=== PATIENT | male | born 1955 | race Caucasian/White ===

== ENCOUNTER 2017-01-14 13:48 | Inpatient (IN) | payer BC, OTHER ==
[~2017-01-14] VITALS: Ht 188 cm; Wt 74.8 kg
--- NOTE | 2017-01-14 16:00 | NUR ---
Intake Assessment; Patient is a 61 year old male, AOX4, presented to [facility] to detoxify from ETOH. Patient arrived at intake office at approximately 1530. He is the primary source of information. Patient is admitted under the care of Dr. Neville to room 312. Patient was educated regarding the importance of providing urine for urine drug screen. Patient appears to be anxious, agitated, flushed face, tremors to touch. Patient denies any allergies or seizure history. Patient's admitting Vital signs are as follows; BP 126/83, HR 98, Temperature 98.4, Respirations 18 and Spo2 of 95%, patient denies pain at this time. Patient remained cooperative with assessment. Educated patient regarding unit protocol and policies, verbalized understanding. Will continue with further assessment when patient is up on the unit.
[2017-01-14] MEDS ORDERED: LOPERAMIDE HCL 2 MG CAPSULE PO PRN ×2 (16:30)
[2017-01-14] MEDS ORDERED: DICYCLOMINE HCL 20 MG TABLET PO PRN (16:30)
[2017-01-14] MEDS ORDERED: ONDANSETRON 4 MG/2 ML VIAL IM PRN (16:30)
[2017-01-14] MEDS ORDERED: LORAZEPAM 1 MG TABLET PO PRN (16:30)
[2017-01-14] MEDS ORDERED: MAGNESIUM HYDROXIDE 30 ML LIQUID UDC PO PRN (16:30)
[2017-01-14] MEDS ORDERED: ONDANSETRON ODT 4 MG TAB.RAPDIS SL PRN (16:30)
[2017-01-14] MEDS ORDERED: THIAMINE HCL 200 MG/2 ML VIAL IM ONE (16:30)
[2017-01-14] MEDS ORDERED: ACETAMINOPHEN 325 MG TABLET PO PRN (16:30)
[2017-01-14] MEDS ORDERED: MAG HYDROX/AL HYDROX/SIMETH 30 ML LIQUID UDC PO PRN (16:30)
[2017-01-14] MEDS ORDERED: diphenhydrAMINE 50 MG CAPSULE PO PRN (16:30)
[2017-01-14] MEDS ORDERED: MIRALAX 17 GM POWD.PACK PO PRN (16:30)
[2017-01-14] MEDS ORDERED: LORAZEPAM 2 MG/1 ML VIAL IM PRN (16:30)
[2017-01-14 17:20] LABS: BASOPHILS % (AUTO) 0.9 % (0.0-2.0); EOSINOPHILS # (AUTO) 0.1 K/uL (0.0-0.7); EOSINOPHILS % (AUTO) 2.6 % (0.0-7.0); HEMATOCRIT 46.2 % (40-50); HEMOGLOBIN 15.4 G/DL (14.0-18.0); LYMPHOCYTES # (AUTO) 1.3 K/UL (0.8-4.8); LYMPHOCYTES % (AUTO) 25.3 % (20.5-51.5); MEAN CORPUSCULAR HEMOGLOBIN 33.6 UUG (27.0-31.0); MEAN CORPUSCULAR HGB CONC 33 g/dL (32.0-37.0); MEAN CORPUSCULAR VOLUME 100.7 FL (82.0-92.0); MONOCYTES # (AUTO) 0.6 K/UL (0.1-1.30); MONOCYTES % (AUTO) 11.1 % (0.0-11.0); NEUTROPHILS % (AUTO) 60.1 % (38.5-71.5); PLATELET COUNT (AUTO) 112 K/UL (150-450); RED BLOOD CELL COUNT(AUTO) 4.59 MIL/UL (4.7-6.1)
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
[2017-01-14 17:38] LABS: BILIRUBIN,TOTAL 0.4 mg/dL (0.2-1.0); MAGNESIUM 1.9 mg/dL (1.8-2.4); POTASSIUM 3.3 mmol/L (3.5-5.1)
--- NOTE | 2017-01-14 18:35 | NUR ---
MD communication; Dr. Neville reviewed patient's LAB results. MD ordered K-dur 60 mEq x1 and repeat chem, LFT and lipase in AM. Orders entered d/t does not have access to Percentil at this time. also notified regarding patient's psoriasis flare up, per MD he will evaluate patient's skin tomorrow during rounds.
--- NOTE | 2017-01-14 18:40 | NUR ---
End of shift note; Patient is AOX4. Patient was educated regarding the importance of providing urine fro urine drug screen, patient verbalized understanding. Per MD order, patient to start 5 day Ativan taper tomorrow morning. All safety measures secured. Met all needs.
--- NOTE | 2017-01-14 19:50 | NUR ---
START OF SHIFT Received report from day shift nurse. Pt is lying in bed resting. He is a 61 yo male admitted to [facility] today for ETOH dependence. He is A&O x4 and ambulatory. NKA, full code status, on a regular diet. He has a PMH of psoriasis, anxiety, rib and wrist fracture 3 years ago. On admission he reported using ETOH 750mL per day. Prior to admission today he was in the ED in [place] for ETOH intoxication. PRN's available for the management of withdrawal symptoms. 5 Day Ativan taper to start tomorrow. No urine provided for drug screen yet. Encouraged fluids. He is observed with tremors and moist skin. Fall and seizure precautions in place. Bed is down with call light in reach.
[2017-01-14 20:00] VITALS: BP 114/73
[2017-01-14] MEDS ORDERED: POTASSIUM CHLORIDE 20 MEQ TAB.PRT.SR PO ONE ×3 (20:30→21:30)
[2017-01-14] MEDS: LORAZEPAM 1 MG TABLET PO PRN ×2 (21:10→23:15)
--- NOTE | 2017-01-14 21:10 | NUR ---
PRN Ativan and Clonidine administration Pt is noted with gross tremors, flushing, and sweating. He reports feeling anxious and unable to relax. CIWA score 8. PRN Clonidine and Ativan administered.
[2017-01-14] MEDS: CLONIDINE HCL 0.1 MG TABLET PO PRN (21:11)
[2017-01-14 21:34] LABS: *AMPHETAMINE, URINE NEGATIVE (NEGATIVE); *BARBITURATE, URINE NEGATIVE (NEGATIVE); *CANNABINOID, URINE NEGATIVE (NEGATIVE); *COCCAINE, URINE NEGATIVE (NEGATIVE); *OPIATE, URINE NEGATIVE (NEGATIVE); *PHENCYCLIDINE SCREEN,URINE NEGATIVE (NEGATIVE)
--- NOTE | 2017-01-14 22:10 | NUR ---
PRN Ativan and Clonidine reassessment PRN Ativan and Clonidine effective. Pt now has mild fine tremors. He reports feeling relaxed and less anxious. CIWA 4.
[2017-01-14 23:05] VITALS: BP 139/77
--- NOTE | 2017-01-14 23:16 | NUR ---
PRN Ativan and Benadryl Pt is noted again with gross tremors and diaphoresis. He reports feeling anxious, and unable to relax and fall asleep. CIWA 7. PRN Ativan and Benadryl administered.
[2017-01-15 00:05] VITALS: BP 155/93
--- NOTE | 2017-01-15 00:16 | NUR ---
PRN Ativan and Benadryl reassessment PRN Ativan and Benadryl somewhat effective. Tremors reduced. B/P slightly increased. He is lying still in bed resting with eyes closed. Respirations even and unlabored. Safety measures in place.
[2017-01-15 04:20] VITALS: BP 149/103
[2017-01-15] MEDS: CLONIDINE HCL 0.1 MG TABLET PO PRN (04:42)
[2017-01-15] MEDS: HYDROXYZINE PAMOATE 25 MG CAPSULE PO PRN (04:43)
--- NOTE | 2017-01-15 04:43 | NUR ---
PRN Clonidine and Vistaril Pt's B/P is 149/103. He has moist skin and gross tremors. CIWA 6. PRN Clonidine and Vistaril administered.
--- NOTE | 2017-01-15 05:43 | NUR ---
PRN Clonidine and Vistaril reassessment PRN Clonidine and Vistaril effective. Pt is lying still in bed resting with eyes closed. Respirations even and unlabored. Safety measures in place.
--- NOTE | 2017-01-15 07:00 | NUR ---
Start of Shift Endorsement received from nightshift nurse. Pt is a 61 y/o male admitted for alcohol. Pt has been placed on a 5 day Ativan taper. Pt is tolerating the taper and moderately withdrawing AEB CIWA 6 at 0500. Pt has received PRN Ativan x2, Vistaril x1, Clonidine x2 and Benadryl. Pt reports sleeping 9 hours. VS WNL. Full Code. PT is alert and oriented x4. Pt is in STABLE condition at this time. Remains compliant with medication and diet regimen. All needs have been met, All safety measures in place per hospital policy. Bed in lowest position, side rails up x2, call-light within reach. Will continue to monitor
--- NOTE | 2017-01-15 07:22 | NUR ---
START OF SHIFT Received report from day shift nurse. Pt is lying in bed resting. He is a 61 yo male admitted to [facility] on 01/14 for ETOH dependence. He is A&O x4. NKA, full code status, on a regular diet. He has a PMH of psoriasis, anxiety, rib and wrist fracture 3 years ago. On admission he reported using ETOH 750mL per day. PRNs available for the management of withdrawal symptoms. 5 Day Ativan taper to start today. UDS resulted. Pt was noted with gross tremors. PRN Ativan x2, PRN Clonidine X2, PRN Benadryl, and PRN Vistaril administered. Last CIWA was 6 prior to neurological surgeon PRNs. He slept after. He drank 1500mL and slept for 9 hours. Fall and seizure precautions in place. Bed is down with call light in reach. Addendum: 01/15/17 at 193 by AMY RANDOLPH RN Correction: Report provided to day shift nurse. Addendum: 01/15/17 at 2056 by AMY RANDOLPH RN Correction: This is END OF SHIFT note
[2017-01-15 08:00] VITALS: BP 139/97
[2017-01-15 08:05] LABS: BILIRUBIN,TOTAL 1.1 mg/dL (0.2-1.0); CREATININE 0.8 mg/dL (0.6-1.3); POTASSIUM 3.8 mmol/L (3.5-5.1); TOTAL PROTEIN, SERUM 6.4 g/dL (6.4-8.2)
[2017-01-15] MEDS: LORAZEPAM 1 MG TABLET PO SCH ×4 (08:19→22:01)
[2017-01-15] MEDS: MULTIVITAMINS,THERAPEUTIC TABLET PO SCH (08:19)
[2017-01-15] MEDS: DOCUSATE SODIUM 250 MG CAPSULE PO SCH (08:19)
[2017-01-15] MEDS: FOLIC ACID 1 MG TABLET PO SCH (08:19)
[2017-01-15] MEDS: THIAMINE HCL 100 MG TABLET PO SCH (08:20)
[2017-01-15] MEDS ORDERED: 5 DAY TAPER OF LORAZEPAM -SERENITY PROTOCOL PO PRN (09:00)
[2017-01-15] MEDS ORDERED: TUBERCULIN,PURIF.PROT.DERIV. 5 TU/0.1 ML TEST ID ONE (09:00)
[2017-01-15 12:00] VITALS: BP 129/88
--- NOTE | 2017-01-15 14:07 | NUR ---
Therapist prompted client to attend daily group sessions, at 11am and 3:30pm. Client stated that he would think about attending.
[2017-01-15 16:00] VITALS: BP 132/95
--- NOTE | 2017-01-15 18:30 | NUR ---
Start of Shift Endorsement given to nightshift nurse. Pt is a 61 y/o male admitted for alcohol. Pt has been placed on a 5 day Ativan taper. Pt is tolerating the taper and moderately withdrawing AEB CIWA 7 at 1600. Pt has not received any PRN medications. Pt is tolerating the Ativan taper. Pt did not participate in groups, reporting he proffering sleeping in his room. Educated pt on s/e of withdrawals and medications s/e. Encouraged pt to drink more fluids. Intake: 2000ml, Void x3, BM x1 VS WNL. Full Code. PT is alert and oriented x4. Pt is in STABLE condition at this time. Remains compliant with medication and diet regimen. All needs have been met, All safety measures in place per hospital policy. Bed in lowest position, side rails up x2, call-light within reach. Will continue to monitor
--- NOTE | 2017-01-15 19:45 | NUR ---
START OF SHIFT Received report from day shift nurse. Pt is lying in bed resting. He is a 61 yo male admitted to [facility] on 01/14 for ETOH dependence. He is A&O x4 and ambulatory. NKA, full code status, on a regular diet. He has a PMH of psoriasis, anxiety, rib and wrist fracture 3 years ago. On admission he reported using ETOH 750mL per day. 5 Day Ativan taper started today. He has fine tremors and moist skin. Ativan taper is working well to manage gross tremors. Fall and seizure precautions in place. Bed is down with call light in reach.
[2017-01-15 20:00] VITALS: BP 118/87
[2017-01-16] VITALS: BP 138/96
[2017-01-16 04:00] VITALS: BP 131/87
[2017-01-16 07:11] LABS: HEPATITIS B SURFACE AG Negative (Negative)
--- NOTE | 2017-01-16 07:18 | NUR ---
END OF SHIFT Report provided to day shift nurse. Pt is lying in bed resting. He is a 61 yo male admitted to [facility] on 01/14 for ETOH dependence. He is A&O x4 and ambulatory. NKA, full code status, on a regular diet. He has a PMH of psoriasis, anxiety, rib and wrist fracture 3 years ago. On admission he reported using ETOH 750mL per day. 5 Day Ativan taper started yesterday. He has fine tremors and occasional mild gross tremors. Pt spent most of the shift in bed. No PRN medications administered. Last CIWA was 4. He drank 651mL and slept for 11 hours. Fall and seizure precautions in place. Bed is down with call light in reach.
--- NOTE | 2017-01-16 07:30 | NUR ---
START OF SHIFT Pt 61 y/o male admitted for etoh withdrawal. Pt received in room with eyes closed resting, but easily arousable to name. Pt alert and oriented to name, place, and time. Perrla. Skin warm and slightly moist to touch. Respirations even and unlabored. It was reported that pt slept for 11 hours last night. Bed on lowest position with side rails x2 up for safety. Call light within reach. No distress noted at this time.
[2017-01-16 08:00] VITALS: BP 153/104
[2017-01-16] MEDS: FOLIC ACID 1 MG TABLET PO SCH (08:53)
[2017-01-16] MEDS: CLONIDINE HCL 0.1 MG TABLET PO PRN (08:53)
[2017-01-16] MEDS: DOCUSATE SODIUM 250 MG CAPSULE PO SCH (08:53)
[2017-01-16] MEDS: MULTIVITAMINS,THERAPEUTIC TABLET PO SCH (08:53)
[2017-01-16] MEDS: LORAZEPAM 1 MG TABLET PO SCH ×3 (08:53→20:19)
[2017-01-16] MEDS: THIAMINE HCL 100 MG TABLET PO SCH (08:53)
--- NOTE | 2017-01-16 08:53 | NUR ---
PRN Pt with oj=220/104. Catapres po prn per MD order given and tolerated well.
--- NOTE | 2017-01-16 09:50 | NUR ---
NSG ENTRY MD aware of [id number].
--- NOTE | 2017-01-16 09:53 | NUR ---
PRN EVAL Pt with pp=765/92.
[2017-01-16 12:49] VITALS: BP 134/81
--- NOTE | 2017-01-16 14:25 | NUR ---
Therapist prompted client to attend daily group therapy sessions. Client stated that he has not been feeling well and most likely would not attend today.
[2017-01-16 16:00] VITALS: BP 136/98
--- NOTE | 2017-01-16 18:18 | NUR ---
END OF SHIFT Pt 61 y/o male admitted for etoh witdrawal. Pt alert and oriented to name, place, and time. Perrla. Skin warm and moist to touch. Respirations even and unlabored. Bilateral hand tremors noted. Pt observed mostly isolative to room throughout the day. Pt did not attend group activity today. Pt was seen by MD today. Pt medication compliant and tolerated well. No ASE noted. Bed on lowest position with side rails x2 up for safety. Call light within reach. No distress noted at this time.
--- NOTE | 2017-01-16 19:15 | NUR ---
Start of Shift: Report received. Pt admitted for ETOH withdrawal and is on a 5-day Ativan taper; reported drinking 750ml ETOH daily for 20 years. . Pt received in room, and noted with moderate bilateral hand tremor; reports anxiety and diaphoresis. Pt requests medication to help him sleep. All safety precautions are in place. Will continue to monitor.
[2017-01-16 20:00] VITALS: BP 134/95
[2017-01-16] MEDS: QUETIAPINE FUMARATE 25 MG TABLET PO PRN (20:19)
--- NOTE | 2017-01-16 20:19 | NUR ---
PRN Seroquel: Patient requests medication to help him sleep. Administered PRN Seroquel as ordered. Will continue to monitor.
[2017-01-16] MEDS: HYDROXYZINE PAMOATE 25 MG CAPSULE PO PRN (21:38)
--- NOTE | 2017-01-16 21:38 | NUR ---
PRN MEDICATION Vistaril 50 mg PO PRN given at 2137 for patient complaints of anxiety. Effect pending. Will continue to monitor.
--- NOTE | 2017-01-16 22:38 | NUR ---
REASSESSMENT OF PATIENT PATIENT REASSESSED ONE HOUR FOLLOWING ADMINISTRATION OF VISTARIL 50 MG po FOR ANXIETY. PATIENT RESTING COMFORTABLY IN BED WITH CALL LIGHT IN REACH. PATIENT WITH EYES CLOSED, BREATHING EVENLY AND NON LABORED.
[2017-01-17] VITALS: BP 119/83
--- NOTE | 2017-01-17 | NUR ---
ESTUARDO Deferred: ESTUARDO is deferred for sleep. VSS. Addendum: 01/17/17 at 0143 by CLEMENT ARCE RN Amended: Links added.
[2017-01-17 04:00] VITALS: BP 120/93
--- NOTE | 2017-01-17 04:00 | NUR ---
CIWA Deferred: CIWA is deferred for sleep. VSS. All safety precautions are in place. Will continue to monitor. Addendum: 01/17/17 at 0510 by CLEMENT ARCE RN Amended: Links added.
--- NOTE | 2017-01-17 07:23 | NUR ---
End of Shift Note: Pt is a 61 y/o male admitted to [facility] on 01/14/17 for medically-supervised withdrawal from ETOH. Pt reported PMHx of psoriasis and anxiety. Pt is a full code, reports NKDA/NKFA, and is on a regular diet. Pt reported drinking 750ml vodka daily x 20 years. Pt is on a 5-day Ativan taper. Scheduled medication regime managed s/s of withdrawal this shift, in addition to PRN Vistaril for anxiety. Last CIWA=10 at 20:00 before taper medications were administered. V/S stable throughout shift, with tachycardia. Total fluid intake this shift: 850 ml; output: urine x 1 and BM x 0. PRN Seroquel was given for insomnia, which was effective and slept 10 hours this shift. Pt is currently in bed, all needs have been attended and met. Pt endorsed to day shift nurse.
--- NOTE | 2017-01-17 07:42 | NUR ---
START OF SHIFT Pt 61 y/o male admitted for etoh withdrawal. Pt received in room with eyes closed resting, but easily arousable to name. Pt alert and oriented to name, place, and time. Perrla. Skin warm and slightly moist to touch. Respirations even and unlabored. It was reported that pt slept for 10 hours last night. Bed on lowest position with side rails x2 up for safety. Call light within reach. No distress noted at this time.
[2017-01-17 08:00] VITALS: BP 109/79
[2017-01-17] MEDS: MULTIVITAMINS,THERAPEUTIC TABLET PO SCH (08:30)
[2017-01-17] MEDS: FOLIC ACID 1 MG TABLET PO SCH (08:30)
[2017-01-17] MEDS: HYDROXYZINE PAMOATE 25 MG CAPSULE PO PRN (08:30)
[2017-01-17] MEDS: THIAMINE HCL 100 MG TABLET PO SCH (08:30)
[2017-01-17] MEDS: LORAZEPAM 1 MG TABLET PO SCH ×4 (08:30→21:22)
--- NOTE | 2017-01-17 08:38 | NUR ---
PRN Pt states feels anxious and appears restless. Vistaril po prn per MD order given and tolerated well.
[2017-01-17] MEDS: DOCUSATE SODIUM 250 MG CAPSULE PO SCH (09:00)
--- NOTE | 2017-01-17 09:38 | NUR ---
PRN EVAL Pt states vistaril was effective. Pt observed in room on bed watching television.
[2017-01-17] MEDS: CLOBETASOL PROPIONATE 0.05% CREAM 15 GM TUBE TOP SCH ×2 (12:00→16:14)
[2017-01-17 13:32] VITALS: BP 136/85
[2017-01-17 16:00] VITALS: BP 119/87
--- NOTE | 2017-01-17 18:25 | NUR ---
END OF SHIFT Pt 61 y/o male admitted for etoh witdrawal. Pt alert and oriented to name, place, and time. Perrla. Skin warm and moist to touch. Respirations even and unlabored. Bilateral hand tremors noted. Pt observed mostly isolative to room throughout the day. Pt did not attend group activity today even with encouragement. Pt was seen by Dr. Neville today. Pt medication compliant and tolerated well. No ASE noted. Bed on lowest position with side rails x2 up for safety. Call light within reach. No distress noted at this time.
--- NOTE | 2017-01-17 19:44 | NUR ---
Rec'd Pt resting in bed. 61 y/o male with cc: ETOH withdrawal. Patient was started on a 5-day Ativan taper. Patient reported drinking 750ml ETOH daily for 20 years. Afebrile and vital signs are stable. Noted moderate bilateral hand tremors. Patient is anxious but not diaphoretic at this time. Reviewed current plan of care. Patient voiced understanding. Safety measures in progress. Bed is in the lowest position, side rails are up and call light is within reach. Will continue to monitor closely..
[2017-01-17] MEDS: IBUPROFEN 600 MG TABLET PO PRN (21:22)
[2017-01-18 00:47] VITALS: BP 123/94
[2017-01-18 04:30] VITALS: BP 125/89
--- NOTE | 2017-01-18 06:54 | NUR ---
EOS report: No interval changes during the shift. Afebrile and vital signs are stable. CIWA score @ 5. Patient still having tremors. Ativan (5 day) protocol in progress. Patient tolerating well. No other concerns at this time. All needs were met. Safety and seizure precaution maintained. Will endorse to oncoming shift to follow up care.
--- NOTE | 2017-01-18 07:35 | NUR ---
START OF SHIFT Pt 61 y/o male admitted for etoh withdrawal. Pt received in room on bed awake watching television. Pt alert and oriented to name, place, and time. Perrla. Skin warm and slightly moist to touch. Respirations even and unlabored. It was reported that pt slept for 9 hours last night. Bed on lowest position with side rails x2 up for safety. Call light within reach. No distress noted at this time.
[2017-01-18] MEDS: THIAMINE HCL 100 MG TABLET PO SCH (08:32)
[2017-01-18] MEDS: LORAZEPAM 1 MG TABLET PO SCH ×3 (08:32→21:21)
[2017-01-18] MEDS: FOLIC ACID 1 MG TABLET PO SCH (08:32)
[2017-01-18] MEDS: MULTIVITAMINS,THERAPEUTIC TABLET PO SCH (08:32)
[2017-01-18] MEDS: CLOBETASOL PROPIONATE 0.05% CREAM 15 GM TUBE TOP SCH ×2 (08:33→16:43)
[2017-01-18 08:35] VITALS: BP 115/82
[2017-01-18] MEDS: DOCUSATE SODIUM 250 MG CAPSULE PO SCH (08:44)
--- NOTE | 2017-01-18 08:50 | NUR ---
PRN Pt states feels anxious. Catapres po prn per MD order given and tolerated well. Addendum: 01/18/17 at 0952 by DERIC MARTINEZ RN incorrect pt
--- NOTE | 2017-01-18 08:50 | NUR ---
PRN Pt with c/o body aches 11/16. Baclofen po prn per MD order given and tolerated well. Addendum: 01/18/17 at 0952 by DERIC MARTINEZ RN incorrect pt
[2017-01-18 13:22] VITALS: BP 130/96
[2017-01-18] MEDS: CLONIDINE HCL 0.1 MG TABLET PO PRN (16:41)
--- NOTE | 2017-01-18 16:41 | NUR ---
PRN pt with zj=390/104. Catapres po prn per MD order given and tolerated well.
[2017-01-18 17:14] VITALS: BP 137/64
--- NOTE | 2017-01-18 17:41 | NUR ---
PRN EVAL pt with rb=636/89.
--- NOTE | 2017-01-18 18:14 | NUR ---
END OF SHIFT Pt 61 y/o male admitted for etoh witdrawal. Pt alert and oriented to name, place, and time. Perrla. Skin warm and moist to touch. Respirations even and unlabored. Bilateral hand tremors noted. Pt observed mostly isolative to room throughout the day. Pt did not attend group activity today even with encouragement. Pt was seen by MD today. Pt medication compliant and tolerated well. No ASE noted. Bed on lowest position with side rails x2 up for safety. Call light within reach. No distress noted at this time.
--- NOTE | 2017-01-18 19:25 | NUR ---
Start of shift report: Rec'd Pt resting in bed. 61 y/o male with cc: ETOH withdrawal. Patient was started on a 5-day Ativan taper. Patient will rec'd last dose of Ativan ( taper) tonight. Patient reported drinking 750ml ETOH daily for 20 years. Afebrile and vital signs are stable. Noted moderate bilateral hand tremors. Patient is anxious but not diaphoretic at this time. Patient stated" I just need to see my family". Patient's COWS score is 4 and CIWA is 3. Patient requested sleeping medication now. Reviewed current plan of care. Patient voiced understanding. Safety measures in progress. Bed is in the lowest position, side rails are up and call light is within reach. Will continue to monitor closely. Addendum: 01/19/17 at 0042 by CEZAR ESTEVEZ RN Charted in error. Patient does not have a COWS score.
[2017-01-18] MEDS: QUETIAPINE FUMARATE 25 MG TABLET PO PRN (19:28)
[2017-01-18 20:06] VITALS: BP 131/90
--- NOTE | 2017-01-18 20:28 | NUR ---
Seroquel reassessment: Resting quietly with eyes closed. Will continue to monitor closely.
--- NOTE | 2017-01-18 22:55 | NUR ---
PRN: Seroquel. Patient c/o difficulty sleeping. Medicated with Seroquel per patient request. Patient tolerated well. Will continue to monitor closely. Addendum: 01/18/17 at 2258 by CEZAR ESTEVEZ RN Seroquel was given @ 1928. Documented in chart at the incorrect time.
[2017-01-18] MEDS: IBUPROFEN 600 MG TABLET PO PRN (23:56)
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
[2017-01-19 00:05] VITALS: BP 120/76
--- NOTE | 2017-01-19 00:56 | NUR ---
Leyda reassessment: Resting in bed with eyes closed. Patient appears comfortable. No signs of pain or discomfort. Will continue to monitor closely.
[2017-01-19 05:11] VITALS: BP 110/74
--- NOTE | 2017-01-19 06:52 | NUR ---
EOS report: No interval changes during the shift. Afebrile and vital signs are stable. CIWA score @ 4. Patient still having tremors. Ativan (5 day) protocol has been completed. Patient slept a total of 6 hrs during the shift. No other concerns at this time. All needs were met. Safety and seizure precaution maintained. Will endorse to oncoming shift to follow up care.
--- NOTE | 2017-01-19 07:30 | NUR ---
START OF SHIFT Pt is a 61 yr old male, A&Ox3. Pt was admitted on 01/14/17 for ETOH dependence and is on 5 day Ativan taper as ordered. Medication rm well. Pt received Motrin PRN and Seroquel PRN during the night. Medication was effective. Pt slept for 6 hrs. Last CIWA score was 4. Pt is currently in bed resting with respirations even and unlabored. Pt denies any anxiety or agitation. Pt is observed with gross tremors. Skin is warm and dry to touch. Pt denies any n/v. Encouraged increase fluid intake. Safety precautions is observed. Call light is within reach. Will continue to monitor.
[2017-01-19 08:00] VITALS: BP 153/97
[2017-01-19] MEDS: MULTIVITAMINS,THERAPEUTIC TABLET PO SCH (08:56)
[2017-01-19] MEDS: THIAMINE HCL 100 MG TABLET PO SCH (08:57)
[2017-01-19] MEDS: FOLIC ACID 1 MG TABLET PO SCH (08:57)
[2017-01-19] MEDS: LORAZEPAM 1 MG TABLET PO SCH ×2 (08:57→21:33)
[2017-01-19] MEDS: CLOBETASOL PROPIONATE 0.05% CREAM 15 GM TUBE TOP SCH ×2 (08:59→17:09)
[2017-01-19 12:30] VITALS: BP 131/81
[2017-01-19 16:00] VITALS: BP 142/99
--- NOTE | 2017-01-19 18:57 | NUR ---
END OF SHIFT Pt is a 61 yr old male, A&Ox3. Pt was admitted on 01/14/17 for ETOH dependence and is on 5 day Ativan taper as ordered. Medication rm well. Pt has been observed with increase fatigue and refused to attend group sessions. Pt was encouraged to attend group sessions. No PRNs were given during the day. Pt denies any anxiety or agitation. Pt is observed with gross tremors. Skin is warm and dry to touch. Pt denies any n/v. Encouraged increase fluid intake. Last CIWA score was 4 at 1600. Safety precautions is observed. Call light is within reach.
--- NOTE | 2017-01-19 19:40 | NUR ---
Start of shift report: Rec'd Pt resting in bed. 61 y/o male with cc: ETOH withdrawal. Patient was started on a 5-day Ativan taper. Patient will rec'd last dose of Ativan tonight (taper). Patient reported drinking 750ml ETOH daily for 20 years. Afebrile and vital signs are stable. Noted moderate bilateral hand tremors. Patient is anxious but not diaphoretic at this time. Patient stated" I just need to see my ". Patient's CIWA is 5. Patient requested sleeping medication now. Reviewed current plan of care. Patient voiced understanding. Safety measures in progress. Bed is in the lowest position, side rails are up and call light is within reach. Will continue to monitor closely.
[2017-01-19] MEDS: QUETIAPINE FUMARATE 25 MG TABLET PO PRN (19:46)
--- NOTE | 2017-01-19 19:47 | NUR ---
PRN Seroquel: C/o difficulty falling asleep. Medicated with Seroquel per request. Will continue to monitor closely.
[2017-01-19 20:18] VITALS: BP 132/96
--- NOTE | 2017-01-19 20:47 | NUR ---
Reassessment Seroquel: Resting quietly in bed. No signs of distress. Will continue to monitor closely.
[2017-01-19] MEDS: GABAPENTIN 300 MG CAPSULE PO SCH (21:33)
[2017-01-19] MEDS: CLONIDINE HCL 0.1 MG TABLET PO SCH (21:34)
[2017-01-20 00:11] VITALS: BP 98/67
[2017-01-20 04:36] VITALS: BP 94/62
--- NOTE | 2017-01-20 06:26 | NUR ---
EOS report: No interval changes during the shift. Afebrile and vital signs are stable. CIWA score @ 5. Patient still having tremors. Ativan (5 day) protocol has been completed. Patient rec'd Seroquel to help him sleep. Patient slept a total of 6 hrs during the shift. No other concerns at this time. All needs were met. Safety and seizure precaution maintained. Will endorse to oncoming shift to follow up care.
--- NOTE | 2017-01-20 07:35 | NUR ---
START OF SHIFT Pt is a 61 yr old male, A&Ox3. Pt was admitted on 01/14/17 for ETOH dependence and has completed 5 day Ativan taper as ordered. Medication rm well. Pt received Seroquel PRN during the night. Medication was effective. Pt slept for 6 hrs. Last CIWA score was 5. Pt denies any anxiety or agitation at this time. Pt is observed with gross tremors. Skin is warm and dry to touch. Pt denies any n/v. Encouraged increase fluid intake. Safety precautions is observed. Call light is within reach. Will continue to monitor.
[2017-01-20 08:00] VITALS: BP 126/94
[2017-01-20] MEDS: MULTIVITAMINS,THERAPEUTIC TABLET PO SCH (08:51)
[2017-01-20] MEDS: GABAPENTIN 300 MG CAPSULE PO SCH ×2 (08:51→21:24)
[2017-01-20] MEDS: FOLIC ACID 1 MG TABLET PO SCH (08:51)
[2017-01-20] MEDS: THIAMINE HCL 100 MG TABLET PO SCH (08:51)
[2017-01-20] MEDS: CLOBETASOL PROPIONATE 0.05% CREAM 15 GM TUBE TOP SCH ×2 (08:51→16:46)
[2017-01-20 12:00] VITALS: BP 142/90
[2017-01-20] MEDS ORDERED: GABA-534 PO (13:29)
[2017-01-20] MEDS ORDERED: CLOB15CR10 TOP (13:29)
[2017-01-20] MEDS ORDERED: HYDR-3895 PO (13:29)
[2017-01-20] MEDS ORDERED: QUET25TA PO (13:29)
[2017-01-20] MEDS ORDERED: CLON0.1T14 PO (13:29)
[2017-01-20 13:52] LABS: *AMPHETAMINE, URINE NEGATIVE (NEGATIVE); *BARBITURATE, URINE NEGATIVE (NEGATIVE); *CANNABINOID, URINE NEGATIVE (NEGATIVE); *COCCAINE, URINE NEGATIVE (NEGATIVE); *OPIATE, URINE NEGATIVE (NEGATIVE); *PHENCYCLIDINE SCREEN,URINE NEGATIVE (NEGATIVE)
[2017-01-20 16:00] VITALS: BP 145/100
--- NOTE | 2017-01-20 19:10 | NUR ---
END OF SHIFT Pt is a 61 yr old male, A&Ox3. Pt was admitted on 01/14/17 for ETOH dependence and has completed 5 day Ativan taper as ordered. Medication rm well. Pt has been refusing to attend group sessions. Pt was encouraged to attend group sessions. No PRNs were given during the day. Pt denies any anxiety or agitation. Pt is observed with gross tremors. Skin is warm and dry to touch. Pt denies any n/v. Pt is to be discharged tomorrow on 01/21/17. Urine drug screen is complete. Encouraged increase fluid intake. Last CIWA score was 3 at 1600. Safety precautions is observed. Call light is within reach.
[2017-01-20 20:00] VITALS: BP 143/94
--- NOTE | 2017-01-20 20:00 | NUR ---
Start of Shift Patient is a 61-year old, male, admitted for ETOH dependence. Pt with NKA, is Full Code and on Regular Diet. Pt was placed on a 5-day Ativan taper, was completed and with no ASE. Pt is AAOx4, with no anxiety nor SOB noted. Pt is ambulatory with steady gait. With psoriasis on back and right elbow, and scab on left elbow. Pics taken and placed on chart. With ointment medication ordered. Pt is stable. Fall, universal and safety prec in place. Call light within reach. Latest CIWA=2. Will continue to monitor.
[2017-01-20] MEDS: QUETIAPINE FUMARATE 25 MG TABLET PO PRN (21:24)
[2017-01-20] MEDS: CLONIDINE HCL 0.1 MG TABLET PO SCH (21:24)
--- NOTE | 2017-01-20 21:25 | NUR ---
RN note PRN Seroquel Pt c/o inability to sleep. Administered Seroquel 50 mg PO as ordered. Will reassess.
--- NOTE | 2017-01-20 22:25 | NUR ---
RN note reassess Pt asleep on bed, no SOB nor facial grimacing noted. Will continue to monitor.
[2017-01-21] VITALS: BP 140/86
--- NOTE | 2017-01-21 04:00 | NUR ---
RN note Pt refused CIWA assessment and vital signs check despite explanation of risks and benefits. RR=16. Will continue to monitor.
--- NOTE | 2017-01-21 07:05 | NUR ---
End of Shift Patient is a 61-year old, male, admitted for ETOH dependence. Pt with NKA, is Full Code and on Regular Diet. Pt was placed on a 5-day Ativan taper, was completed and with no ASE. Pt is AAOx4, with no anxiety nor SOB noted. Pt is ambulatory with steady gait. With psoriasis on back and right elbow, and scab on left elbow. Pics taken and placed on chart. With ointment medication ordered. Pt is stable. Fall, universal and safety prec in place. Call light within reach. Latest CIWA=2, slept for 7 hours. Endorsed to AM shift nurse for continuity of care.
--- NOTE | 2017-01-21 08:00 | NUR ---
START OF SHIFT: RECEIVED PT A/O X 4. HE STATES HE FEELS MILDLY ANXIOUS ABOUT UPCOMING DISCHARGE. FINE TREMORS NOTED TO HANDS. CIWA 2. DETOX TAPER COMPLETED. DISCHARGE PLANNING IN PROGRESS. HE STATES HE IS EATING AND SLEEPING OK. WILL CONTINUE TO MONITOR.
[2017-01-21 08:02] VITALS: BP 159/101
[2017-01-21] MEDS: CLONIDINE HCL 0.1 MG TABLET PO PRN (08:02)
[2017-01-21] MEDS: MULTIVITAMINS,THERAPEUTIC TABLET PO SCH (08:02)
[2017-01-21] MEDS: FOLIC ACID 1 MG TABLET PO SCH (08:02)
[2017-01-21] MEDS: CLOBETASOL PROPIONATE 0.05% CREAM 15 GM TUBE TOP SCH (08:02)
[2017-01-21] MEDS: THIAMINE HCL 100 MG TABLET PO SCH (08:02)
[2017-01-21] MEDS: GABAPENTIN 300 MG CAPSULE PO SCH (08:02)
--- NOTE | 2017-01-21 09:40 | NUR ---
DISCHARGE: PT IS A/O X 4. HE DENIES S/I AND H/I. BELONGINGS RETURNED. EDUCATED PT ON DISCHARGE INSTRUCTIONS AND MEDICATIONS. HE EXPRESSED VERBAL UNDERSTANDING OF EDUCATION. LINE INSTALLER ESCORTED PT TO [facility] WHERE HE WAS TRANSPORTED BY [facility] TO [facility] AT 0935.
== END 2017-01-21 09:35 | disposition other institution (70) | DRG 895 ==
LOC: SRC 15:51
PROVIDERS: ADMIT Internal Medicine; ATTEND Internal Medicine
PROC: HZ2ZZZZ Detoxification Services for Substance Abuse Treatment (ICD-10-PCS; principal; 2017-01-14)
PROC: HZ31ZZZ Individual Counseling for Substance Abuse Treatment, Behavioral (ICD-10-PCS; 2017-01-16)
DX: F10.230 Alcohol dependence with withdrawal, uncomplicated (principal); K85.20 Alcohol induced acute pancreatitis without necrosis or infection; F10.220 Alcohol dependence with intoxication, uncomplicated; K70.10 Alcoholic hepatitis without ascites; Y90.7 Blood alcohol level of 200-239 mg/100 ml; E87.6 Hypokalemia; L40.0 Psoriasis vulgaris; Z87.891 Personal history of nicotine dependence; D69.6 Thrombocytopenia, unspecified; I15.9 Secondary hypertension, unspecified; D17.1 Benign lipomatous neoplasm of skin and subcutaneous tissue of trunk
CPT/HCPCS: 36415; 73630; 80307; 83690; 83735; 85025; 86580; 86592; 86705; 86803; 87340; 87806; A4663; G0480; Q0163